=== PATIENT | female | born 1980 | race Caucasian/White ===

== ENCOUNTER 2024-12-10 07:22 | Day surgery (SDC) | payer OTHER ==
[2024-12-04 17:42] VITALS: BMI 27.1
[2024-12-10 09:13] LABS: MCHC 32.8 g/dl (32.2-35.5); MEAN CELL VOLUME 88.0 fl (79.4-94.8); MEAN PLT VOLUME 10.7 fl (9.4-12.3); RDW 12.1 % (12.2-17.1)
[2024-12-10 09:45] LABS: ALK PHOS 47.0 U/L (45-117); CO2 27.0 mmol/L (21-32); CREATININE 0.8 mg/dl (0.6-1.3); GLUCOSE,RANDOM 80.0 mg/dl (74-106); SGOT/AST 17.0 U/L (15-37); SGPT/ALT 19.0 U/L (7-52); TOT PROT 7.3 g/dl (6.4-8.2)
[2024-12-10 12:24] VITALS: PULSE 86; RESP 16; TEMP 97.7
[2024-12-10 12:40] VITALS: BP 126/73
== END 2024-12-10 12:40 | disposition home or self-care (01) ==
LOC: FECT 07:22
PROVIDERS: ATTEND Student in an Organized Health Care Education/Training Program
PROC: GZB4ZZZ Other Electroconvulsive Therapy (ICD-10-PCS; principal; 2024-12-10 11:16)
DX: F33.2 Major depressive disorder, recurrent severe without psychotic features (principal)
CPT/HCPCS: 36415; 80053; 85027; 90870; 93005; 93010; 94760

== ENCOUNTER 2024-12-11 08:14 | Day surgery (SDC) | payer OTHER ==
[2024-12-07 11:12] VITALS: BMI 27.1
[2024-12-11] MEDS ORDERED: PROPOFOL 20 ML ONE ×2 (10:23→10:40)
[2024-12-11] MEDS: MIDAZOLAM HCL 2 MG/2 ML SINGLE DOSE VIAL IVPUSH ONE (10:52)
[2024-12-11] MEDS ORDERED: MIDAZOLAM HCL 2 MG/2 ML SINGLE DOSE VIAL ONE (10:53)
[2024-12-11] MEDS ORDERED: ONDANSETRON 4 MG/2 ML VIAL IVPUSH PRN (11:16)
[2024-12-11] MEDS ORDERED: LACTATED RINGERS SOLUTION 1,000 ML IV SCH (11:30)
[2024-12-11 12:13] VITALS: RESP 16; TEMP 97.7
[2024-12-11 12:16] VITALS: BP 116/74; PULSE 78
== END 2024-12-11 12:30 | disposition home or self-care (01) ==
LOC: FECT 08:14
PROVIDERS: ATTEND Student in an Organized Health Care Education/Training Program
PROC: GZB4ZZZ Other Electroconvulsive Therapy (ICD-10-PCS; principal; 2024-12-11 10:31)
DX: F33.2 Major depressive disorder, recurrent severe without psychotic features (principal)
CPT/HCPCS: 90870; 94760

== ENCOUNTER 2024-12-15 08:43 | Day surgery (SDC) | payer OTHER ==
[2024-12-02 11:49] VITALS: BMI 27.1
[2024-12-15] MEDS ORDERED: GLYCOPYRROLATE 0.2 MG/1 ML VIAL ONE (09:10)
[2024-12-15] MEDS ORDERED: SUCCINYLCHOLINE CHLORIDE 200 MG/10 ML SYRINGE ONE (09:11)
[2024-12-15 12:03] VITALS: BP 118/70; PULSE 83
[2024-12-15 12:15] VITALS: RESP 18; TEMP 97.2
== END 2024-12-15 12:35 | disposition home or self-care (01) ==
LOC: FECT 08:43
PROVIDERS: ATTEND Student in an Organized Health Care Education/Training Program
PROC: GZB4ZZZ Other Electroconvulsive Therapy (ICD-10-PCS; principal; 2024-12-15 11:04)
DX: F33.2 Major depressive disorder, recurrent severe without psychotic features (principal)
CPT/HCPCS: 90870; 94760